=== PATIENT | male | born 1950 | race Hispanic/Latino ===

== ENCOUNTER 2024-01-08 01:38 | Emergency (ER) | payer OTHER ==
[2024-01-08] MEDS ORDERED: ONDANSETRON 4 MG/2 ML VIAL ONE ×2 (02:08→03:55)
[2024-01-08] MEDS ORDERED: FENTANYL CITR 100 MCG/2 ML ONE (02:09)
[2024-01-08] MEDS ORDERED: KETOROLAC 30 MG/ML INJ ONE (02:09)
[2024-01-08] MEDS ORDERED: NA CHLORIDE 0.9% 1,000 ML ONE (02:10)
[2024-01-08 02:22] LABS: Absolute Eosinophils 0.1 K/uL (0-0.5); Absolute Lymphocytes (CBC) 0.7 K/uL (0.7-4.9); Absolute Monocytes 0.5 K/uL (0.1-1.3); Absolute Neutrophil 6.7 K/uL (1.8-8.0); Basophils % 0.2 % (0-1.3); Eosinophils % 1.1 % (0-4.4); Hematocrit 39.6 % (39.6-49.0); Hemoglobin 13.7 g/dL (13.6-17.9); Lymphocytes % 8.3 % (15.3-44.8); MCH 31.4 pg (27.0-35.0); MCHC 34.7 g/dL (32.0-36.0); MCV 90.5 fL (80-100); MPV 7.3 fL (7.6-11.3); Monocytes % 6.9 % (3.3-12.3); Neutrophils % 83.5 % (41.7-73.7); Nucleated Red Blood Cells % 0.3 % (0-0); Platelets 270 thou/uL (152-406); RBC Red Blood Cell Count 4.38 M/uL (4.33-5.43)
[2024-01-08 02:31] LABS: ALT/SGPT 18 U/L (16-61); Albumin 3.4 g/dL (3.4-5.0); Albumin/Globulin Ratio 0.9 (1.1-1.8); Alkaline Phosphatase 105 U/L (45-117); Anion Gap 7.9 mEq/L (5.0-15.0); BUN Blood Urea Nitrogen 18 mg/dL (7-18); Bicarbonate 25 mEq/L (21-32); Bilirubin Total 0.4 mg/dL (0.2-1.0); Globulin 3.6 g/dL (2.3-3.5); Glomerular Filtration Rate 69 ml/min (=/>90); Glucose Level 133 mg/dL (74-106); Potassium 3.9 mEq/L (3.5-5.1); Sodium Level 139 mEq/L (136-145)
[2024-01-08 02:37] LABS: SARS-CoV-2 Antigen CONTROL BLUE LINE VIS/BG OK; SARS-CoV-2 Antigen Rapid Res Negative (Negative)
[2024-01-08 02:42] LABS: AST/SGOT < 10 U/L (15-37)
[2024-01-08] MEDS ORDERED: PROMETHAZINE INJ 25 MG/ML AMP ONE (04:22)
--- NOTE | 2024-01-08 04:58 | EDPHYS ---
Physician Documentation [facility] Name: Jose David Dumont Age: 73 yrs Sex: Male : 1950 Arrival Date: 01/08/2024 Time: 01:38 Bed 5 Private MD: HARPAL Physician Wes Bernal HPI: 01/07 01:57 This 73 yrs old Male presents to ER via Unassigned with complaints of Swollen cameron Glands, Sore Throat. 01:57 The patient presents with sore throat. The patient describes throat pain as cameron intermittent. Onset: The symptoms/episode began/occurred 3 day(s) ago. Severity of symptoms: At their worst the symptoms were. Historical: - Allergies: 01:57 Cheese; lg3 01:57 Rotisserie Chicken; lg3 - PMHx: :57 Diabetes - NIDDM; High Cholesterol; Hypertension; Osteoporosis; prostate cancer; stroke;lg3 - PSHx: 01:57 None; lg3 - Immunization history:: Adult Immunizations up to date. - Infectious Disease History:: Denies. - Family history:: not pertinent. - Social history:: Smoking status: Patient denies any tobacco usage or history of. ROS: 01:59 Constitutional: Negative for fever, chills, and weight loss, Eyes: Negative for injury, cameron pain, redness, and discharge, ENT: Negative for injury, pain, and discharge, Cardiovascular: Negative for chest pain, palpitations, and edema, Respiratory: Negative for shortness of breath, cough, wheezing, and pleuritic chest pain, Abdomen/GI: Negative for abdominal pain, nausea, vomiting, diarrhea, and constipation, Back: Negative for injury and pain, : Negative for injury, bleeding, discharge, and swelling, MS/Extremity: Negative for injury and deformity, Skin: Negative for injury, rash, and discoloration, Neuro: Negative for headache, weakness, numbness, tingling, and seizure, Psych: Negative for depression, anxiety, suicide ideation, homicidal ideation, and hallucinations, Allergy/Immunology: Negative for hives, rash, and allergies, Endocrine: Negative for neck swelling, polydipsia, polyuria, polyphagia, and marked weight changes, Hematologic/Lymphatic: Negative for swollen nodes, abnormal bleeding, and unusual bruising, 01:59 Neck: Positive for pain with movement, pain at rest, Exam: 01:59 Constitutional: This is a well developed, well nourished patient who is awake, alert, cameron and in no acute distress. Head/Face: Normocephalic, atraumatic. Eyes: Pupils equal round and reactive to light, extra-ocular motions intact. Lids and lashes normal. Conjunctiva and sclera are non-icteric and not injected. Cornea within normal limits. Periorbital areas with no swelling, redness, or edema. ENT: Nares patent. No nasal discharge, no septal abnormalities noted. Tympanic membranes are normal and external auditory canals are clear. Oropharynx with no redness, swelling, or masses, exudates, or evidence of obstruction, uvula midline. Mucous membranes moist. Chest/axilla: Normal chest wall appearance and motion. Nontender with no deformity. No lesions are appreciated. Cardiovascular: Regular rate and rhythm with a normal S1 and S2. No gallops, murmurs, or rubs. Normal PMI, no JVD. No pulse deficits. Respiratory: Lungs have equal breath sounds bilaterally, clear to auscultation and percussion. No rales, rhonchi or wheezes noted. No increased work of breathing, no retractions or nasal flaring. Abdomen/GI: Soft, non-tender, with normal bowel sounds. No distension or tympany. No guarding or rebound. No evidence of tenderness throughout. Back: No spinal tenderness. No costovertebral tenderness. Full range of motion. Male : Normal genitalia with no discharge or lesions. Skin: Warm, dry with normal turgor. Normal color with no rashes, no lesions, and no evidence of cellulitis. MS/ Extremity: Pulses equal, no cyanosis. Neurovascular intact. Full, normal range of motion. Neuro: Awake and alert, GCS 15, oriented to person, place, time, and situation. Cranial nerves II-XII grossly intact. Motor strength 5/5 in all extremities. Sensory grossly intact. Cerebellar exam normal. Normal gait. Psych: Awake, alert, with orientation to person, place and time. Behavior, mood, and affect are within normal limits. 01:59 Neck: External neck: is normal, no acute changes, C-spine: appears grossly normal, no acute changes, Thyroid: appears normal, Trachea: is midline with no obvious abnormalities, ROM/movement: pain, that is mild, 04:31 ECG was reviewed by the Attending Physician. [facility] Vital Signs: 01:55 BP 154 / 90; Pulse 74; Resp 16 S; Temp 97.9(O); Pulse Ox 99% on R/A; Weight 71.67 kg lg3 (R); Height 5 ft. 8 in. (R); Pain 7/10; 03:36 BP 138 / 85; Pulse 73; Resp 17; Temp 98.2; Pulse Ox 100% on R/A; Pain 2/10; bm8 04:55 BP 116 / 57; Pulse 66; Resp 18; Temp 98.2; Pulse Ox 98% on R/A; Pain 0/10; bm8 05:10 BP 167 / 82; Pulse 69; Resp 18; Temp 97.1(TE); Pulse Ox 99% on R/A; Pain 0/10; tm6 01:55 Body Mass Index 24.02 (71.67 kg, 172.72 cm) lg3 01:55 Pain Scale: Adult lg3 03:36 Pain Scale: Adult bm8 04:55 Pain Scale: Adult bm8 05:10 Pain Scale: Adult tm6 Kirsty Coma Score: 03:36 Eye Response: spontaneous(4). Motor Response: obeys commands(6). Verbal Response: bm8 oriented(5). Total: 15. 04:55 Eye Response: spontaneous(4). Motor Response: obeys commands(6). Verbal Response: bm8 oriented(5). Total: 15. MDM: 01:47 Patient medically screened. [facility] 02:01 Differential diagnosis: group A strep tonsillitis, influenza, peritonsillar abscess cameron chlamydia pharyngitis, pharyngitis, tonsillitis, upper respiratory infection, uvulitis. Data reviewed: vital signs, nurses notes, lab test result(s), radiologic studies, CT scan. Consideration of Admission/Observation Escalation of care including admission/observation considered. I considered the following discharge prescriptions or medication management in the emergency department Medications were administered in the Emergency Department. See MAR. Independent interpretation of the following test(s) in the Emergency Department CT Scan: My interpretation is ct head and c spine. Test considered but Not performed: EKG: no ekg. Care significantly affected by the following chronic conditions: Diabetes, Hypertension, htn, cva, prostrate. 01/07 01:56 Order name: CBC with Diff; Complete Time: 02:42 [facility] 01/07 01:56 Order name: Comprehensive Metabolic Panel; Complete Time: 02:42 [facility] 01/07 02:05 Order name: Flu; Complete Time: 02:42 [facility] 01/07 02:05 Order name: SARS RAPID; Complete Time: 02:42 [facility] 01/07 02:05 Order name: Strep; Complete Time: 02:42 [facility] 01/07 02:40 Order name: Throat Culture EDPR 01/07 01:56 Order name: CT Soft Tissue Neck W/contr [facility] 01/07 01:59 Order name: CT Head C Spine [facility] 01/07 03:55 Order name: EKG - Nurse/Tech; Complete Time: 03:59 [facility] EC:31 Rate is 65 beats/min. Rhythm is regular. QRS [place] is Normal. NM interval is normal. QRS cameron interval is normal. QT interval is normal. No Q waves. T waves are Normal. No ST changes noted. Clinical impression: Normal ECG and No evidence of ischemia. Interpreted by me. Reviewed by me. Administered Medications: 02:18 Drug: NS 0.9% IV 1000 ml IV at 1 bolus Per protocol; 1000 mL bolus Route: IV; Rate: 1 bm8 bolus; Site: right antecubital; 03:55 Follow up: Response: No adverse reaction; IV Status: Completed infusion; IV Intake: bm8 1000ml 02:18 Drug: Ketorolac IVP 15 mg IVP once Route: IVP; Site: right antecubital; bm8 03:55 Follow up: Response: No adverse reaction bm8 02:18 Drug: fentaNYL (PF) IVP 25 mcg IVP once Route: IVP; Site: right antecubital; bm8 03:55 Follow up: Response: No adverse reaction bm8 02:18 Drug: Ondansetron IVP 4 mg IVP once; over 2 minutes Route: IVP; Site: right antecubital;bm8 03:55 Follow up: Response: No adverse reaction bm8 03:59 Drug: Ondansetron IVP 4 mg IVP once; over 2 minutes Route: IVP; Site: right antecubital;tm6 04:58 Follow up: Response: No adverse reaction bm8 04:39 Drug: Promethazine IVP 12.5 mg IVP once Route: IVP; Site: right antecubital; bm8 04:58 Follow up: Response: No adverse reaction 8 05:09 Drug: Rocephin IV 1 grams IV at per protocol once; Given slow IV push per pharmacy bm8 instructions Route: IV; Rate: per protocol; Site: right antecubital; 05:09 Follow up: Response: Medication administered at discharge.; IV Status: Completed bm8 infusion; IV Intake: 10ml Disposition Summary: 01/08/24 04:58 Discharge Ordered Notes: Location: Home [facility] Problem: new cameron Symptoms: have improved cameron Condition: Stable cameron Diagnosis - Pain in throat cameron - Nausea cameron - Hypertrophy of tonsils - CHRONIC TONSILLITIS cameron Followup: cameron - With: Private Physician - When: 2 - 3 days - Reason: Recheck today's complaints, Re-evaluation by your physician Followup: cameron - With: Alexa Alvarenga MD - When: 2 - 3 days - Reason: Recheck today's complaints, Re-evaluation by your physician Discharge Instructions: - Discharge Summary Sheet cameron - Nausea and Vomiting, Adult cameron - Nausea, Adult cameron - Sore Throat cameron - Vertigo cameron - Tonsillectomy, Adult cameron - Vertigo, [id number] cameron - Sore Throat, [id number] cameron - Tonsillectomy, Adult, Care After cameron Forms: - Medication Reconciliation Form [facility] - Antibiotic Education cameron - Prescription Opioid Use [facility] - Patient Portal Instructions [facility] - Leadership Thank You Letter [facility] Prescriptions: - acetaminophen-codeine 300-30 mg Oral tablet - take 2 tablet ORAL route every 6 hours as needed for pain; 20 tablet; Refills: cameron 0, Product Selection Permitted - ondansetron 4 mg Oral Tablet,disintegrating - take 1 tablet ORAL route every 8 hours for 5 days prn nausea; 20 tablet; cameron Refills: 0, Product Selection Permitted - promethazine 25 mg Rectal suppository - insert 1 suppository RECTAL route every 6 hours as needed for intractable cameron nausea and vomiting; 14 suppository; Refills: 0, Product Selection Permitted - Augmentin 875-125 mg Oral tablet - take 1 tablet ORAL route every 12 hours for 7 days; 14 tablet; Refills: 0, cameron Product Selection Permitted - Motrin IB 200 mg Oral tablet - take 2 tablet ORAL route every 6 hours As needed as needed with food; 30 cameron tablet; Refills: 0, Product Selection Permitted Signatures: Dispatcher [employer] EDMS Wes Bernal MD MD cha Able, Lacie, RN RN lg3 Ronna Bruno, RN RN tm6 Abhishek Coto, RN RN bm8 Corrections: (The following items were deleted from the chart) 01:57 01:57 Soft Tissue Neck W/Contr+CT.RAD.BRZ ordered. EDMS EDMS 01:59 01:59 Head C Spine MPR Wo Con+CT.RAD.BRZ ordered. EDMS EDMS 02:22 01:57 Head Brain Wo Cont+CT.RAD.BRZ ordered. EDMS EDMS
--- NOTE | 2024-01-08 04:58 | ER ---
Nurse's Notes [facility] Name: Jose David Dumont Age: 73 yrs Sex: Male : 1950 Arrival Date: 01/08/2024 Time: 01:38 Bed 5 Private MD: Diagnosis: Pain in throat;Nausea;Hypertrophy of tonsils-CHRONIC TONSILLITIS Presentation: 01/07 01:55 Chief complaint: Patient states: neck pain X2 weeks. Coronavirus screen: Client denies lg3 travel out of the [place] in the last 14 days. At this time, the client does not indicate any symptoms associated with coronavirus-19. Ebola Screen: No symptoms or risks identified at this time. Initial Sepsis Screen: Does the patient meet any 2 criteria? No. Patient's initial sepsis screen is negative. Does the patient have a suspected source of infection? No. Patient's initial sepsis screen is negative. Risk Assessment: Do you want to hurt yourself or someone else? Patient reports no desire to harm self or others. Onset of symptoms is unknown. 01:55 Method Of Arrival: Ambulatory lg3 01:55 Acuity: MERLE 4 lg3 Triage Assessment: 01:57 General: Appears in no apparent distress. uncomfortable, Behavior is calm, cooperative. lg3 Pain: Complains of pain in neck. EENT: No deficits noted. Throat is clear. Neuro: No deficits noted. Thomson Agitation-Sedation Scale (RASS): 0 - Alert and Calm Level of Consciousness is awake, alert, obeys commands, Oriented to person, place, time, situation. Cardiovascular: No deficits noted. Denies chest pain, shortness of breath, Capillary refill < 3 seconds Clubbing of nail beds is absent JVD is absent Patient's skin is warm and dry. Respiratory: No deficits noted. Airway is patent Respiratory effort is even, unlabored, Respiratory pattern is regular, symmetrical. GI: No deficits noted. No signs and/or symptoms were reported involving the gastrointestinal system. : No deficits noted. No signs and/or symptoms were reported regarding the genitourinary system. Derm: No deficits noted. No signs and/or symptoms reported regarding the dermatologic system. Skin is intact, is healthy with good turgor, Skin is dry, Skin is normal, Skin temperature is warm. Musculoskeletal: Circulation, motion, and sensation intact. Range of motion: intact in all extremities, Reports pain in neck. Historical: - Allergies: 01:57 Cheese; lg3 01:57 Rotisserie Chicken; lg3 - PMHx: 01:57 Diabetes - NIDDM; High Cholesterol; Hypertension; Osteoporosis; prostate cancer; stroke;lg3 - PSHx: 01:57 None; lg3 - Immunization history:: Adult Immunizations up to date. - Infectious Disease History:: Denies. - Family history:: not pertinent. - Social history:: Smoking status: Patient denies any tobacco usage or history of. Screenin:01 [facility] ED Fall Risk Assessment (Adult) History of falling in the last 3 months, lg3 including since admission No falls in past 3 months (0 pts) Confusion or Disorientation No (0 pts) Intoxicated or Sedated No (0 pts) Impaired Gait No (0 pts) Mobility Assist Device Used No (0 pt) Altered Elimination No (0 pt) Score/Fall Risk Level 0 - 2 = Low Risk Oriented to surroundings, Maintained a safe environment, Educated pt \T\ family on fall prevention, incl call for assistance when getting out of bed, Assessed \T\ reinforced patient's understanding of fall precautions. Abuse screen: Denies threats or abuse. Denies injuries from another. Nutritional screening: No deficits noted. Tuberculosis screening: No symptoms or risk factors identified. Assessment: 02:01 General: see triage assessment. Respiratory: Airway is patent Respiratory effort is lg3 even, unlabored, Respiratory pattern is regular, symmetrical, Breath sounds are clear bilaterally. 03:37 Reassessment: Patient appears in no apparent distress at this time. Patient and/or tm6 family updated on plan of care and expected duration. Pain level reassessed. Patient is alert, oriented x 3, equal unlabored respirations, skin warm/dry/pink. 04:07 Reassessment: pt had episode of vertigo and became very nauseous. provider informed and bm8 new orders recieed. 04:55 Reassessment: Patient appears in no apparent distress at this time. Patient and/or bm8 family updated on plan of care and expected duration. Pain level reassessed. Patient is alert, oriented x 3, equal unlabored respirations, skin warm/dry/pink. Patient states symptoms have improved. Pain: Denies pain. Neuro: Level of Consciousness is awake, alert, obeys commands, Oriented to person, place, time, situation. Cardiovascular: Denies chest pain, shortness of breath, Capillary refill < 3 seconds Patient's skin is warm and dry. Respiratory: Airway is patent Respiratory effort is even, unlabored, Respiratory pattern is regular, symmetrical. GI: Patient currently denies nausea. 04:56 Reassessment: Patient appears in no apparent distress at this time. Patient and/or tm6 family updated on plan of care and expected duration. Pain level reassessed. Patient is alert, oriented x 3, equal unlabored respirations, skin warm/dry/pink. Vital Signs: 01:55 BP 154 / 90; Pulse 74; Resp 16 S; Temp 97.9(O); Pulse Ox 99% on R/A; Weight 71.67 kg lg3 (R); Height 5 ft. 8 in. (R); Pain 7/10; 03:36 BP 138 / 85; Pulse 73; Resp 17; Temp 98.2; Pulse Ox 100% on R/A; Pain 2/10; bm8 04:55 BP 116 / 57; Pulse 66; Resp 18; Temp 98.2; Pulse Ox 98% on R/A; Pain 0/10; bm8 05:10 BP 167 / 82; Pulse 69; Resp 18; Temp 97.1(TE); Pulse Ox 99% on R/A; Pain 0/10; tm6 01:55 Body Mass Index 24.02 (71.67 kg, 172.72 cm) lg3 01:55 Pain Scale: Adult lg3 03:36 Pain Scale: Adult bm8 04:55 Pain Scale: Adult bm8 05:10 Pain Scale: Adult tm6 Kirsty Coma Score: 03:36 Eye Response: spontaneous(4). Motor Response: obeys commands(6). Verbal Response: bm8 oriented(5). Total: 15. 04:55 Eye Response: spontaneous(4). Motor Response: obeys commands(6). Verbal Response: bm8 oriented(5). Total: 15. ED Course: 01:40 Patient arrived in ED. jj6 01:47 Wes Bernal MD is Attending Physician[facility] 01:57 Triage completed. lg3 01:57 Arm band placed on right wrist. lg3 02:01 Patient has correct armband on for positive identification. Placed in gown. Bed in low lg3 position. Call light in reach. Side rails up X 1. Client placed on continuous cardiac and pulse oximetry monitoring. NIBP monitoring applied. Door closed. Noise minimized. Warm blanket given. Pillow given. Family accompanied patient. 02:13 Strep Sent. rv1 02:13 SARS RAPID Sent. rv1 02:13 Flu Sent. rv1 02:13 Comprehensive Metabolic Panel Sent. rv1 02:14 CBC with Diff Sent. rv1 02:18 Abhishek Coto, RN is Primary Nurse. bm8 02:18 No provider procedures requiring assistance completed. Initial lab(s) drawn, by id, bm8 sent to lab. COVID swab sent to lab. Flu and/or RSV swab sent to lab. Strep swab sent to lab. Inserted saline lock: 20 gauge in right antecubital area, using aseptic technique. Blood collected. 03:38 Provided Education on: use of call sheridan. Warm blanket given. tm6 03:46 CT Soft Tissue Neck W/contr In Process Unspecified. EDMS 03:46 CT Head C Spine In Process Unspecified. EDMS 03:59 EKG done, by ED staff, reviewed by Wes Bernal MD. tm6 04:58 Alexa Alvarenga MD is Referral Physician. cameron 05:09 IV discontinued, intact, bleeding controlled, No redness/swelling at site. Pressure bm8 dressing applied. Administered Medications: 02:18 Drug: NS 0.9% IV 1000 ml IV at 1 bolus Per protocol; 1000 mL bolus Route: IV; Rate: 1 bm8 bolus; Site: right antecubital; 03:55 Follow up: Response: No adverse reaction; IV Status: Completed infusion; IV Intake: bm8 1000ml 02:18 Drug: Ketorolac IVP 15 mg IVP once Route: IVP; Site: right antecubital; bm8 03:55 Follow up: Response: No adverse reaction bm8 02:18 Drug: fentaNYL (PF) IVP 25 mcg IVP once Route: IVP; Site: right antecubital; bm8 03:55 Follow up: Response: No adverse reaction bm8 02:18 Drug: Ondansetron IVP 4 mg IVP once; over 2 minutes Route: IVP; Site: right antecubital;bm8 03:55 Follow up: Response: No adverse reaction bm8 03:59 Drug: Ondansetron IVP 4 mg IVP once; over 2 minutes Route: IVP; Site: right antecubital;tm6 04:58 Follow up: Response: No adverse reaction bm8 04:39 Drug: Promethazine IVP 12.5 mg IVP once Route: IVP; Site: right antecubital; bm8 04:58 Follow up: Response: No adverse reaction bm8 05:09 Drug: Rocephin IV 1 grams IV at per protocol once; Given slow IV push per pharmacy bm8 instructions Route: IV; Rate: per protocol; Site: right antecubital; 05:09 Follow up: Response: Medication administered at discharge.; IV Status: Completed bm8 infusion; IV Intake: 10ml Medication: 04:55 VIS not applicable for this client. bm8 Intake: 03:55 IV: 1000ml; Total: 1000ml. bm8 05:09 IV: 10ml; Total: 1010ml. bm8 Outcome: 04:58 Discharge ordered by . cameron 05:09 Discharged to home ambulatory, with family, bm8 05:09 Condition: stable 05:09 Discharge instructions given to patient, family, Instructed on discharge instructions, follow up and referral plans. no drinking with medication, no driving heavy equipment, medication usage, safety practices, Demonstrated understanding of instructions, follow-up care, medications, Prescriptions given X 4, 05:10 Prescriptions given X 5 bm8 05:10 Patient left the ED. bm8 Signatures: Dispatcher [employer] EDMS Wes Bernal MD MD cha Able, Lacie, RN RN lg3 Bhumika [place] Rebecca 1 Ronna Bruno RN RN tm6 Abhishek Coto RN RN bm8 Corrections: (The following items were deleted from the chart) 03:55 03:36 BP 138 / 85; Pulse 73bpm; Pulse Ox 100% RA; tm6 bm8 04:57 04:55 Pulse 66bpm; Pulse Ox 98% RA; Pain 0/10, Adult; tm6 bm8
[2024-01-08] MEDS ORDERED: CEFTRIAXONE 1000 MG/VIAL ONE (05:02)
[2024-01-08 05:31] VITALS: BP 167/82; TEMP 97.1; O2SAT 99
--- NOTE | 2024-01-08 18:46 | RAD REPORT ---
EXAM DESCRIPTION: CT Head and Cervical Spine Without Intravenous Contrast CLINICAL HISTORY: The patient is 73 years old and is Male; Headache TECHNIQUE: Axial computed tomography images of the head/brain and cervical spine without intravenous contrast. Sagittal and coronal reformatted images were created and reviewed. This CT exam was pe rformed using one or more of the following dose reduction techniques: automated exposure control, a djustment of the mA and/or kV according to patient size, and/or use of iterative reconstruction techn ique. 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 Anterior left temporal fossa arachnoid cyst. Mild bilateral periventricular and deep white matter microangiopathy changes. No extra-axial fluid collection. No intracranial hemorrhage. No acute focal proctor-white matter differentiation abnormality. MIDLINE SHIFT: No midline shift. VENTRICLES: Unremarkable No ventriculomegaly. SKULL: See below. SINUSES: Unremarkable as visualized. No acute sinusitis. MASTOID AIR CELLS: Unremarkable as visualized. No mastoid effusion. ORBITS: Bilateral lens replacements. VERTEBRAE: No acute fracture or acute vertebral body height loss. No significant subluxation. DISCS/SPINAL CANAL/NEURAL FORAMINA: Mild multilevel degenerative changes of the cervical spine, gre atest at the C5-6 and C6-7 levels. No transtentorial herniation. No significant dusty spinal canal stenosis. OTHER BONES/JOINTS: Unremarkable as visualized. No fracture of the calvarium or visualized facial bones. SOFT TISSUES: Unremarkable No abnormal prevertebral soft tissue swelling. OROPHARYNX: Punctate calcifications noted in the bilateral palatine tonsils, suggesting chronic ton sillitis. OTHER FINDINGS: Dens is intact. No dislocation. Craniocervical orientation is normal. IMPRESSION: 1. No acute intracranial or cervical spine abnormality. 2. Chronic and senescent changes, as above. 3. Findings suggesting bilateral chronic tonsillitis Electronically signed by: Joseph Stover MD 01/08/2024 04:53 AM CDT RP Due to temporary technical issues with the PACS/Fluency reporting system, reports are being signed by the in house radiologists without review as a courtesy to insure prompt reporting. The interpreting radiologist is fully responsible for the content of the report.
--- NOTE | 2024-01-08 18:49 | RAD REPORT ---
EXAM DESCRIPTION: CT Neck With Intravenous Contrast CLINICAL HISTORY: The patient is 73 years old and is Male; Pain;Sore throat Bed Name: 5 TECHNIQUE: Axial computed tomography images of the neck with intravenous contrast. Sagittal and co emilie reformatted images were created and reviewed. This CT exam was performed using one or more of the following dose reduction techniques: automated exposure control, adjustment of the mA and/or k V according to patient size, and/or use of iterative reconstruction technique. COMPARISON: No relevant prior studies available. FINDINGS: BRAIN: Anterior left temporal fossa arachnoid cyst partially visualized with remote donal ical insult and encephalomalacia involving the posterior medial left temporal lobe. Bilateral lens re placements. OROPHARYNX: Punctate calcifications noted in the bilateral palatine tonsils, suggesting chronic ton sillitis. No peritonsillar abscess. HYPOPHARYNX: Unremarkable LARYNX: Unremarkable Normal epiglottis. TRACHEA: Unremarkable RETROPHARYNGEAL SPACE: Unremarkable SUBMANDIBULAR/PAROTID GLANDS: Unremarkable Glands are normal in size. THYROID: Unremarkable No enlarged or calcified nodules. BONES/JOINTS: Multilevel cervical spondylosis with no acute osseous abnormality. No high-grade spinal canal stenosis or abnormal enhancement within the spinal canal. SOFT TISSUES: Unremarkable No abnormal prevertebral soft tissue swelling. 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 LYMPH NODES: Unremarkable No lymphadenopathy. LUNG APICES: Trace biapical scarring. IMPRESSION: Punctate calcifications noted in the bilateral palatine tonsils, suggesting chronic tons illitis. No peritonsillar abscess. No acute abnormality in the soft tissues of the neck. Electronically signed by: Joseph Stover MD 01/08/2024 04:49 AM CDT Due to temporary technical issues with the PACS/Fluency reporting system, reports are being signed by the in house radiologists without review as a courtesy to insure prompt reporting. The interpreting radiologist is fully responsible for the content of the report.
--- NOTE | 2024-01-09 14:56 | EKG ---
Test Date: 2024-01-08 Test Time: 04:01:29 [employer]: DORA MEASUREMENT RESULTS: Intervals: Rate: 65 NH: 152 QRSD: 76 QT: 458 QTc: 476 [place]: P: 60 NH: 152 QRS: -19 T: 64 INTERPRETIVE STATEMENTS: Normal sinus rhythm Normal ECG Compared to ECG 09/29/2016 09:49:13 No significant changes Electronically Signed On 01-09-24 14:51:41 CDT by Alexei Aly
== END 2024-01-08 05:10 | disposition home or self-care (01) ==
LOC: ER 01:38
DX: J35.01 Chronic tonsillitis (principal); R11.0 Nausea; Z11.52 Encounter for screening for COVID-19
CPT/HCPCS: 96361; 93005; 87070; 85025; 36415; 87081; 80053; 87804 ×2; 70450; 72125; 70491; 96375; 96374; 99284; 87811; Q9967; J2550; J3010; J2405 ×2; J7030; J0696